=== PATIENT | male | born 1995 | race Caucasian/White ===

== ENCOUNTER 2019-03-24 11:07 | Emergency (ER) | payer SELFPAY ==
[2019-03-24 11:11] VITALS: BP 173/107; PULSE 65; RESP 16; TEMP 37; O2SAT 99; BMI 34.5
--- NOTE | 2019-03-24 11:22 | ED_ITS ---
Entered by Paulette Horner, acting as scribe for Maxwell Monsalve MD, [facility] [place] HPI - Dizziness General: Chief Complaint: Dizziness Stated Complaint: near syncope Time Seen by Provider: 03/24/19 11:20 Source: patient and RN notes reviewed Mode of arrival: ambulatory Limitations: no limitations History of Present Illness: HPI Narrative: 23 yo male presents to ED with complaints of dizziness. The patient states his head began spinning and stuff at work . He said he woke with a severe diffuse headache and nausea associated with headache. 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 He said when he turns his head or stands up the dizziness is worse. He said it is not constant. The patient said he first woke at 0630 and was fine; he went back to sleep and woke again at 0730 with the headache present. He dad stated the patient was here last year with cardiac issues (A-Fib). MD elicited complaint: dizziness, lightheadedness and vertigo Pertinent past history: other (A-Fib) Onset (ago): hour(s) (4 (0730)) Timing: sudden onset Severity: moderate Description: room spinning and off-balance History of similar symptoms: No Exacerbating factors: movement/ambulation and exertion Relieving factors: remaining still, lying down and keeping eyes closed Associated symptoms: Reports chest pain; Denies chills, palpitations or vomiting Associated neuro symptoms: Reports difficulty speaking and facial numbness (jaw); Deny numbness in extremities Stroke scale total: 0 Review of Systems General: Reports: 10 or more systems reviewed and unremarkable except in HPI and below Const: Denies: fever, chills or body aches Eyes: Reports: blind spots; Denies: change in vision or blurry vision ENMT: Denies: throat pain, enlarged tonsils, painful swallowing, hoarseness, mouth pain or swelling of lips/tongue Card: Reports: chest pain; Denies: palpitations, irregular heart rhythm, edema or swelling of feet/ankles Resp: Denies: shortness of breath, productive cough or non-productive cough GI: Denies: abdominal pain or vomiting : Denies: flank pain, painful urination, urinary frequency, urinary urgency or urinary hesitancy Musc: Denies: neck pain, back pain or extremity swelling Skin/Breast: Denies: rash, itching or redness Neuro: Denies: numbness in extremities or weakness in extremities Endo: Denies: excessive urination, excessive thirst or tired all the time PFSH ED PFSH: Social History Smoking and tobacco status: never smoked Physical Exam Const: COMMON NORMALS: no apparent distress, average body habitus, oriented x3, no limitations, healthy appearing, alert and well nourished HENMT: COMMON NORMALS: normocephalic, head/scalp atraumatic and moist oral mucous membranes HEAD & SCALP: normocephalic and atraumatic Eye: COMMON NORMALS: PERRL, EOMs intact bilaterally, conjunctivae normal and no scleral icterus CONJUNCTIVA: Yes conjunctivae normal PUPIL: Yes PERRL Neck/C-Spine: COMMON NORMALS: full ROM, supple, no meningeal signs, no JVD and no carotid bruits Chest: COMMONS NORMALS: inspection of chest normal and palpation of chest normal Resp: COMMON NORMALS: normal respiratory effort, no retractions, no use of accessory muscles, clear to auscultation bilaterally and percussion normal AUSCULTATION: clear to auscultation bilaterally PERCUSSION: percussion normal Cardio: COMMON NORMALS: no JVD, regular rate, regular rhythm, S1 normal heart sound, S2 normal heart sound, no gallops, no clicks, no murmurs, no rub and peripheral pulses 2+ throughout RATE: regular rate RHYTHM: regular rhythm HEART SOUNDS: S1 normal and S2 normal PERIPHERAL PULSES: pulses 2+ throughout GI: COMMON NORMALS: normal to inspection, nondistended, normoactive bowel sounds, soft to palpation, non-tender, no hepatosplenomegaly, no masses and no bruits PALPATION: Yes soft and Yes no hepatosplenomegaly : COMMON NORMALS: Yes no CVA tenderness BLADDER/KIDNEY EXAM: Yes no CVA tenderness Back/Pelvis: COMMON NORMALS: no CVA tenderness Extremity: COMMON NORMALS: normal to inspection, full ROM, normal capillary refill, no calf tenderness and no pedal edema Neuro: COMMON NORMALS: oriented x3 SENSORIUM/ORIENTATION: Yes alert MENINGEAL SIGNS: Yes no meningeal signs OTHER: no nystagmus. NIH 0 Skin: COMMON NORMALS: no rashes or lesions noted, no wounds, skin turgor normal, no jaundice, no petechiae and no mottling GENERAL SKIN EXAM: no rashes or lesions noted and turgor normal Course Reevaluation(s): Reevaluation #1: Patient feels much better. Vertigo has basically resolved. Meclizine was effective. He is ready to be discharged home. Time: 14:30 Vital Signs: Vital signs: Vital Signs Temperature 98.6 F 03/24/19 11:11 Pulse Rate 68 03/24/19 14:55 Respiratory Rate 22 H 03/24/19 14:55 Blood Pressure 126/57 03/24/19 14:55 Pulse Oximetry 98 03/24/19 14:55 MDM - Dizziness MDM Narrative: Medical decision making narrative: 23-year-old gentleman who presents to the emergency department with symptoms consistent with vertigo. He obtain much improvement following meclizine. Labs and imaging unremarkable. He is discharged home with as needed meclizine. If symptoms persist or recur he may need to follow-up with an ENT provider for further evaluation. Patient voiced understanding and is in agreement with the plan. Lab Data: Labs: Lab Results 03/24/19 03/24/19 Range/Units 11:49 11:49 WBC 6.0 (4.0-10.0) 10^3/ uL RBC 4.99 (4.1-5.3) 10^6/u L Hgb 13.9 (11.7-16.6) g/dL Hct 42.4 (42.0-52.0) % MCV 85.0 (80-94) fL MCH 27.9 L (28.0-34.0) pg MCHC 32.8 (30.0-36.0) g/dL RDW 12.4 (12.1-15.1) % Plt Count 218 (130-400) 10^3/c mm MPV 11.2 H (7.4-10.4) fL Neut % (Auto) 62.8 % Lymph % (Auto) 28.1 % Webb % (Auto) 6.7 % Eos % (Auto) 1.7 % Baso % (Auto) 0.5 % Neut # (Auto) 3.7 (1.8-7.7) 10^3/u L Lymph # (Auto) 1.7 (0.8-4.8) 10^3/u L Webb # (Auto) 0.4 (0.2-0.9) 10^3/u L Eos # (Auto) 0.1 (0.0-0.8) 10^3/u L Baso # (Auto) 0.0 (0.0-0.1) 10^3/u L Nucleated RBC % (a uto) 0 % Nucleated RBCs # 0.0 /100WBC Sodium 140 (136-145) mmol/L Potassium 4.3 (3.5-5.1) mmol/L Chloride 104 (98-107) mmol/L Carbon Dioxide 24 (22-29) mmol/L Anion Gap 16.3 (5-19) BUN 16 (6-20) mg/dL Creatinine 0.8 (0.7-1.2) mg/dL GFR Calculation 120.9 (90-130) mL/min Glucose 95 (65-115) mg/dL Calcium 10.0 (8.5-10.5) mg/dL Total Bilirubin 0.4 (0.15-1.2) mg/dL AST 19 (0-40) U/L ALT 25 (0-41) U/L Alkaline Phosphata se 61 (40-130) IU/L Total Protein 7.3 (6.6-8.7) g/dL Albumin 4.7 (3.5-5.2) g/dL Globulin 2.6 (1.3-4.6) g/dL Imaging Data^: CXR: Radiologist's impression: [address] [address] XRay Report Signed Patient: Steven Esparza #: [id number] : 1995Acct#:[id number] Age/Sex: Date: 03/24/19 Loc: ERRoom/Bed: Attending Dr: Ordering Provider/Ordering MD: Maxwell Monsalve MD, [facility] [place] Date of Service: 03/24/19 Procedure(s): XR chest 1V portable [id number] Accession Number(s): [id number] Report Number: [id number] WS: [id number] XR chest 1V portable [id number] REASON FOR EXAM: dizziness FINDINGS: Borderline cardiomegaly. The lung motley are well-aerated no pneumonia, congestive heart failure, pulmonary edema, or mass effect. No osseous abnormalities. The hilum and apices are normal. XR/XR chest 1V portable [id number] IMPRESSION: Borderline cardiomegaly Dictated By:Luther Mcghee DO Signed By:Luther Mcghee DOSigned Date/Time:03/24/19 1208 DD/ CT Head: Radiologist's impression: [facility] [address] [place] [address] CT Scan Report Signed Patient: Steven Esparza #: [id number] : 1995Acct#:[id number] Age/Sex: Date: 03/24/19 Loc: ERRoom/Bed: Attending Dr: Ordering Provider/Ordering MD: Maxwell Monsalve MD, [facility] [place] Date of Service: 03/24/19 Procedure(s): CT head wo con* [id number] Accession Number(s): [id number] Report Number: [id number] PROCEDURE INFORMATION: Exam: CT Head Without Contrast Exam date and time: 03/24/2019 12:05 PM Age: 23 years old Clinical indication: Dizziness; Additional info: Worst headache of his life TECHNIQUE: Imaging protocol: Computed tomography of the head without contrast. Total DLP: 887.71 mGy-cm Radiation optimization: All CT scans at this facility use at least one of these dose optimization techniques: automated exposure control; mA and/or kV adjustment per patient size (includes targeted exams where dose is matched to clinical indication); or iterative reconstruction. COMPARISON: No relevant prior studies available. FINDINGS: Brain: Normal. No hemorrhage. Unremarkable white matter. No mass effect. Ventricles: Normal. No ventriculomegaly. Bones/joints: Unremarkable. No acute fracture. Sinuses: Visualized sinuses are unremarkable. No fluid levels. Mastoid air cells: Visualized mastoid air cells are well aerated. Soft tissues: Unremarkable. CT/CT head wo con* [id number] IMPRESSION: No acute intracranial abnormality. Radiation Dose CTDIVOL = (mGy): DLP = 887.71 (mGy-cm) Dictated By:Stefano Bull MD Signed By:Stefano Bull MDSigned Date/Time:03/24/19 1354 DD/ EKG Data^: EKG 1: Attestation: I personally reviewed and interpreted this EKG as follows: EKG interpretation date: 03/24/19 EKG interpretation time: 11:20 Prior EKG tracings: not available for review Interpretation: Normal sinus rhythm. Heart rate 61. Normal axis. No ST changes. Discharge Plan Discharge Patient Disposition: Home, Self-Care Clinical Impression: Vertigo Condition: Stable Prescriptions: New meclizine 25 mg tablet 25 mg PO TID PRN (Reason: dizziness) Qty: 30 RF: 0 Continued ibuprofen 200 mg Tablet 400 mg PO PRN RF: 0 Matrix X Multivitamin 2 tab PO TID RF: 0 Discharge Orders: Discharge Order (Routine); Ordered 03/24/19 Ordered By: Maxwell Monsalve Referrals: Matthwe Canchola MD [Family Provider] - 1-3 days Patient Instructions: Vertigo (ED) Activity Restrictions/Additional Instructions: Return for any new or worsening symptoms. Take the medication as needed for vertigo. If your symptoms persist, you may need to follow up with an ENT surgeon. Drink plenty of fluids to keep well hydrated. Discharge Date/Time: 03/24/19 14:56 Coding Level of Care Code ED Manager Fitness for Chg Fwd Exam Comprehensive The documentation recorded by the Evens lama Valerie R, accurately reflects the service I personally performed and the decisions made by Bello braxton Adegoke I, MD, [facility] Mar 24, 2019 11:07
--- NOTE | 2019-03-24 11:40 | CTR_ITS ---
PROCEDURE INFORMATION: Exam: CT Head Without Contrast Exam date and time: 03/24/2019 12:05 PM Age: 23 years old Clinical indication: Dizziness; Additional info: Worst headache of his life TECHNIQUE: Imaging protocol: Computed tomography of the head without contrast. Total DLP: 887.71 mGy-cm Radiation optimization: All CT scans at this facility use at least one of these dose optimization techniques: automated exposure control; mA and/or kV adjustment per patient size (includes targeted exams where dose is matched to clinical indication); or iterative reconstruction. COMPARISON: No relevant prior studies available. FINDINGS: Brain: Normal. No hemorrhage. Unremarkable white matter. No mass effect. Ventricles: Normal. No ventriculomegaly. Bones/joints: Unremarkable. No acute fracture. Sinuses: Visualized sinuses are unremarkable. No fluid levels. Mastoid air cells: Visualized mastoid air cells are well aerated. Soft tissues: Unremarkable. CT/CT head wo con* [id number] IMPRESSION: No acute intracranial abnormality. Radiation Dose CTDIVOL = (mGy): DLP = 887.71 (mGy-cm)
--- NOTE | 2019-03-24 11:40 | XR_ITS ---
WS: [id number] XR chest 1V portable [id number] REASON FOR EXAM: dizziness FINDINGS: Borderline cardiomegaly. The lung motley are well-aerated no pneumonia, congestive heart failure, pulmonary edema, or mass eff ect. No osseous abnormalities. The hilum and apices are normal. XR/XR chest 1V portable [id number] IMPRESSION: Borderline cardiomegaly
--- NOTE | 2019-03-24 11:42 | ECG_ITS ---
Measurements Intervals [place] Rate: 61 P: 23 GA: 180 QRS: 1 QRSD: 106 T: 7 QT: 326 QTc: 330 SINUS RHYTHM Compared to ECG 03/28/2018 21:26:26 Atrial fibrillation no longer present Electronically Signed On 03-24-2019 14:26:34 SNOW GROOMER by Leighton Lea M.D. [email or web address]
[2019-03-24 12:00] LABS: Basophils % 0.5 %; Eosinophils # 0.1 10^3/uL (0.0-0.8); Eosinophils % 1.7 %; Hematocrit 42.4 % (42.0-52.0); Hemoglobin 13.9 g/dL (11.7-16.6); Lymphocytes # 1.7 10^3/uL (0.8-4.8); Lymphocytes % 28.1 %; Mean Corpuscular HGB Conc 32.8 g/dL (30.0-36.0); Mean Corpuscular Hemoglobin 27.9 pg (28.0-34.0); Mean Platelet Volume 11.2 fL (7.4-10.4); Monocytes # 0.4 10^3/uL (0.2-0.9); Monocytes % 6.7 %; Neutrophils # 3.7 10^3/uL (1.8-7.7); Neutrophils % 62.8 %; Nucleated Red Blood Cells % 0 %; Platelet Count 218 10^3/cmm (130-400); Red Blood Count 4.99 10^6/uL (4.1-5.3); Red Cell Distribution Width 12.4 % (12.1-15.1)
--- NOTE | 2019-03-24 12:01 | PC.NURSE ---
radiology in room
[2019-03-24 12:02] VITALS: BP 123/61; PULSE 69; RESP 20; O2SAT 100
[2019-03-24 12:30] LABS: Alanine Aminotransferase 25 U/L (0-41); Albumin Level 4.7 g/dL (3.5-5.2); Alkaline Phosphatase 61 IU/L (40-130); Anion Gap 16.3 (5-19); Aspartate Amino Transferase 19 U/L (0-40); Blood Urea Nitrogen 16 mg/dL (6-20); Carbon Dioxide 24 mmol/L (22-29); Chloride 104 mmol/L (98-107); Globulin 2.6 g/dL (1.3-4.6); Glomerular Filtration Rate 120.9 mL/min (90-130); Glucose 95 mg/dL (65-115); Potassium 4.3 mmol/L (3.5-5.1); Sodium 140 mmol/L (136-145); Total Bilirubin 0.4 mg/dL (0.15-1.2); Total Protein 7.3 g/dL (6.6-8.7)
[2019-03-24 12:58] VITALS: BP 124/65; BP 125/74; BP 140/62; PULSE 64; PULSE 71; PULSE 78
[2019-03-24] MEDS: meclizine 25 mg tablet 50 MG PO (13:44)
[2019-03-24 14:55] VITALS: BP 126/57; PULSE 68; RESP 22; O2SAT 98
== END 2019-03-24 14:56 | disposition home or self-care (01) ==
PROVIDERS: Emergency Provider Family Medicine; Family Provider Family Medicine
DX: R42 Dizziness and giddiness (principal); I48.91 Unspecified atrial fibrillation
CPT/HCPCS: 36415; 70450; 71045; 80053; 85025; 93005; 99282; 99283; J8597

== ENCOUNTER → 2020-09-24 08:26 | Outpatient (BNVA) | payer OTHER, SELFPAY | PROVIDERS: Family Provider Family Medicine; Visit Provider Nurse Practitioner Family | DX: Z20.822 Contact with and (suspected) exposure to COVID-19 (principal) | CPT/HCPCS: 87635 ==

== ENCOUNTER → 2020-09-25 09:43 | Outpatient (BNVA) | payer OTHER, SELFPAY | PROVIDERS: Family Provider Family Medicine; Visit Provider Nurse Practitioner Family | DX: Z20.822 Contact with and (suspected) exposure to COVID-19 (principal) | CPT/HCPCS: 87426 ==

== ENCOUNTER 2021-10-13 08:00 | Outpatient (CLI) | payer BC, SELFPAY | END 2021-10-13 20:01 | disposition home or self-care (01) | LOC: SLEEP 10-22 10:52 | PROVIDERS: Family Provider Family Medicine; Visit Provider Family Medicine | DX: G47.10 Hypersomnia, unspecified (principal) | CPT/HCPCS: G0399 ==

== ENCOUNTER 2022-05-12 00:48 | Emergency (ER) | payer SELFPAY ==
[2022-05-12] VITALS (8 sets, daily range): BP systolic 120–186; BP diastolic 64–124; PULSE 64–79; RESP 16–18; TEMP 36.7; O2SAT 95–98; BMI 38.0
--- NOTE | 2022-05-12 01:02 | CTR_ITS ---
PROCEDURE INFORMATION: Exam: CT Head Without Contrast Exam date and time: 05/12/2022 1:29 AM Age: 26 years old Clinical indication: Pain; Headache; Patient HX: C/O occipital PROCTOR with hypertension. BP of 225/153 initial recording. TECHNIQUE: Imaging protocol: Computed tomography of the head without contrast. Radiation optimization: All CT scans at this facility use at least one of these dose optimization techniques: automated exposure control; mA and/or kV adjustment per patient size (includes targeted exams where dose is matched to clinical indication); or iterative reconstruction. REPORTING DATA: Count of CT and Cardiac NM exams in prior 12 months: This patient has received 0 known CTs and 0 known cardiac nuclear medicine studies in the 12 months prior to the current study. COMPARISON: CT head wo con* [id number] 03/24/2019 12:19 PM RADIATION DOSE METRICS: Total DLP (mGy-cm): 1033.98 FINDINGS: Brain: No acute intracranial hemorrhage or mass effect. No definite acute infarct by CT. Cerebral ventricles: Ventricle size is normal for age. Paranasal sinuses: Included paranasal sinuses are essentially clear. Mastoid air cells: No significant acute finding. Bones/joints: No definite acute skull fracture. Soft tissues: No significant acute finding. CT/CT head wo con* [id number] IMPRESSION: 1. No acute intracranial hemorrhage or mass effect. 2. Other findings discussed above.
--- NOTE | 2022-05-12 01:03 | W.ED.HA ---
HPI - Headache General: Chief Complaint: Headache Stated Complaint: BP high, PROCTOR Time Seen by Provider: 05/12/22 00:49 Source: patient Mode of arrival: ambulatory Limitations: no limitations History of Present Illness: 26-year-old male has a history of hypertension he states he was on metoprolol years ago but has not taken it in years because of the way it made him fell. States over the last 6 days he has had a progressive headache he states it began gradually is currently a 6 out of 10 denies it being the worst headache of his life he is hypertensive denied at home in the 200s he is hypertensive here as well he denies any chest pain denies any fevers denies any injuries. Denies any worsening proving factors. Associated symptoms: Deny chest pain, fever(s), nausea, rash or vomiting Review of Systems Const: Denies: fever(s), chills, body aches or change in appetite Eyes: Denies: blurry vision or eye discomfort ENMT: Denies: throat pain or dental pain Card: Denies: chest pain Resp: Denies: dyspnea GI: Denies: abdominal pain, nausea, vomiting or diarrhea : Denies: dysuria Musc: Denies: neck pain or back pain Skin/Breast: Denies: rash Neuro: Reports: headache(s) Psych: Denies: depression Tom/Lymph: Denies: easy bruising All/Imm: Denies: urticaria PFSH ED PFSH: Medical History (Updated 05/12/22 @ 03:33 by Pravin Bedolla MD) Hypertension Social History Smoking and tobacco status: never smoked Physical Exam Const: COMMON NORMALS: no acute distress, patient oriented x3 and healthy appearing HENMT: COMMON NORMALS: normocephalic and atraumatic HEAD & SCALP: normocephalic and atraumatic Eye: COMMON NORMALS: Equal, round and reactive pupils present and EOMs intact bilaterally PUPIL: Yes Equal, round and reactive pupils present Neck/C-Spine: COMMON NORMALS: full ROM and supple Chest: COMMONS NORMALS: normal inspection of the chest and normal palpation of entire chest wall Resp: COMMON NORMALS: normal respiratory effort, No retractions, No use of accessory muscles and clear to auscultation bilaterally AUSCULTATION: clear to auscultation bilaterally Cardio: COMMON NORMALS: regular rate, regular rhythm and No murmurs present (Cardio) RATE: regular rate RHYTHM: regular rhythm GI: COMMON NORMALS: Normal to inspection, nondistended, normoactive bowel sounds present, Soft to palpation, non-tender and no masses PALPATION: Yes Soft to palpation Extremity: COMMON NORMALS: normal to inspection and full ROM Neuro: COMMON NORMALS: patient oriented x3, moves all extremities and no focal motor deficits Psych: COMMON NORMALS: mental status grossly normal, Normal thought process present and cooperative THOUGHT PROCESS: Normal thought process present Skin: COMMON NORMALS: no rashes or lesions noted and no wounds GENERAL SKIN EXAM: no rashes or lesions noted Course Vital Signs: Vital signs: Vital Signs Temperature 98.1 F 05/12/22 00:54 Pulse Rate 76 05/12/22 03:49 Respiratory Rate 16 05/12/22 03:49 Blood Pressure 120/64 05/12/22 03:49 Pulse Oximetry 97 05/12/22 03:49 Oxygen Delivery Me thod 05/12/22 03:49 MDM - Headache Medical Decision Making Patient presents here with headache along with hypertension his headache here is resolved that is not the worst headache of his life his head CT is normal blood works normal his blood pressure here is improved to Will prescribe him Norvasc for home he is to follow-up with PCP and return if worsening. Lab Data 05/12/22 01:07 05/12/22 01:07 Laboratory Results WBC 7.5 10^3/uL (4.0-10.0) 05/12/22 01:07 RBC 5.21 10^6/uL (4.1-5.3) 05/12/22 01:07 Hgb 15.1 g/dL (11.7-16.6) 05/12/22 01:07 Hct 46.4 % (42.0-52.0) 05/12/22 01:07 MCV 89.1 fl (80-94) 05/12/22 01:07 MCH 29.0 pg (28.0-34.0) 05/12/22 01:07 MCHC 32.5 g/dL (30.0-36.0) 05/12/22 01:07 RDW 12.2 % (12.1-15.1) 05/12/22 01:07 Plt Count 228 10^3/cmm (130-400) 05/12/22 01:07 MPV 10.9 fL (7.4-10.4) H 05/12/22 01:07 Neut % (Auto) 61.3 % 05/12/22 01:07 Lymph % (Auto) 30.0 % 05/12/22 01:07 [place] % (Auto) 5.7 % 05/12/22 01:07 Eos % (Auto) 1.9 % 05/12/22 01:07 Baso % (Auto) 0.4 % 05/12/22 01:07 Neut # (Auto) 4.60 10^3/uL (1.8-7.7) 05/12/22 01:07 Lymph # (Auto) 2.3 10^3/uL (0.8-4.8) 05/12/22 01:07 [place] # (Auto) 0.4 10^3/uL (0.2-0.9) 05/12/22 01:07 Eos # (Auto) 0.1 10^3/uL (0.0-0.8) 05/12/22 01:07 Baso # (Auto) 0.0 10^3/uL (0.0-0.1) 05/12/22 01:07 Nucleated RBC % (auto) 0 % 05/12/22 01:07 Nucleated RBCs # 0.0 /100WBC 05/12/22 01:07 Sodium 139 mmol/L (136-145) 05/12/22 01:07 Potassium 4.0 mmol/L (3.5-5.1) 05/12/22 01:07 Chloride 105 mmol/L (98-107) 05/12/22 01:07 Carbon Dioxide 24 mmol/L (22-29) 05/12/22 01:07 Anion Gap 14.0 (5-19) 05/12/22 01:07 BUN 12 mg/dL (6-20) 05/12/22 01:07 Creatinine 0.8 mg/dL (0.7-1.2) 05/12/22 01:07 GFR Calculation 117.8 mL/min (90-130) 05/12/22 01:07 Glucose 91 mg/dL (65-115) 05/12/22 01:07 Calculated Osmolality 287 mOsm/kg (285-295) 05/12/22 01:07 Calcium 8.8 mg/dL (8.5-10.5) 05/12/22 01:07 Total Bilirubin 0.3 mg/dL (0.15-1.2) 05/12/22 01:07 AST 29 U/L (0-40) 05/12/22 01:07 ALT 52 U/L (0-41) H 05/12/22 01:07 Alkaline Phosphatase 84 U/L (40-130) 05/12/22 01:07 Total Protein 7.1 g/dL (6.6-8.7) 05/12/22 01:07 Albumin 4.1 g/dL (3.5-5.2) 05/12/22 01:07 Globulin 3.0 g/dL (1.3-4.6) 05/12/22 01:07 EKG Data EKG 1: I personally reviewed and interpreted this EKG as follows: EKG interpretation date: 05/12/22 EKG interpretation time: 01:04 Interpretation: nsr hr [address] or t wave abnormalities qrs 125 qtc 349 Discharge Plan Discharge Patient Disposition: Home Clinical Impression: Hypertension, Headache Condition: Stable Prescriptions: New Norvasc 10 mg tablet 10 mg PO DAILY Qty: 60 0RF No Action Matrix X Multivitamin 2 tab PO TID Discharge Orders: Discharge ED (Routine); Ordered 05/12/22 Ordered By: Pravin Bedolla Referrals: Matthew Canchola MD [Primary Care Provider] - 1-3 days Discharge Diet: Advance as tolerated Discharge Activity: Resume usual activity Patient Instructions: Hypertension (ED), General Headache (ED) Coding Level of Care Code ED Cutting And Boning Supervisor for Chg Matt
--- NOTE | 2022-05-12 01:04 | ECG_ITS ---
[facility] Test Date: 2022-05-12 Pat Name: Steven Esparza Department: Room: Gender: Male Independent Sales Representative: : 1995 Requested By: Pravin Bedolla Order Number: [id number] Kym MD: Indio Meyers M.D. Measurements Intervals [place] Rate: 64 P: 80 WI: 172 QRS: -13 QRSD: 125 T: -1 QT: 340 QTc: 352 Interpretive Statements SINUS RHYTHM WITH SINUS ARRHYTHMIA MODERATE INTRAVENTRICULAR CONDUCTION DELAY [110+ ms QRS DURATION] Compared to ECG 03/24/2019 11:20:09 Intraventricular conduction delay now present Electronically Signed On 05-13-2022 0:08:20 CDT by Indio Meyers M.D. [id number]
[2022-05-12] MEDS: diphenhydrAMINE 50 mg/mL SDV 1mL IVP (01:11)
[2022-05-12 01:12] LABS: Basophils % 0.4 %; Eosinophils # 0.1 10^3/uL (0.0-0.8); Eosinophils % 1.9 %; Hematocrit 46.4 % (42.0-52.0); Hemoglobin 15.1 g/dL (11.7-16.6); Lymphocytes # 2.3 10^3/uL (0.8-4.8); Mean Corpuscular HGB Conc 32.5 g/dL (30.0-36.0); Mean Corpuscular Volume 89.1 fl (80-94); Mean Platelet Volume 10.9 fL (7.4-10.4); Monocytes # 0.4 10^3/uL (0.2-0.9); Monocytes % 5.7 %; Neutrophils % 61.3 %; Nucleated Red Blood Cells % 0 %; Platelet Count 228 10^3/cmm (130-400); Red Blood Count 5.21 10^6/uL (4.1-5.3); Red Cell Distribution Width 12.2 % (12.1-15.1); White Blood Count 7.5 10^3/uL (4.0-10.0)
[2022-05-12] MEDS: metoclopramide 5 mg/mL SDV 2 mL 10 MG IVP (01:13)
[2022-05-12] MEDS: hyDRALAzine 20 mg/mL INJ 1 mL 10 MG IVP (01:15)
[2022-05-12 01:33] LABS: Alanine Aminotransferase 52 U/L (0-41); Albumin Level 4.1 g/dL (3.5-5.2); Alkaline Phosphatase 84 U/L (40-130); Aspartate Amino Transferase 29 U/L (0-40); Blood Urea Nitrogen 12 mg/dL (6-20); Calcium 8.8 mg/dL (8.5-10.5); Carbon Dioxide 24 mmol/L (22-29); Chloride 105 mmol/L (98-107); Glomerular Filtration Rate 117.8 mL/min (90-130); Glucose 91 mg/dL (65-115); Osmolality Calculated 287 mOsm/kg (285-295); Sodium 139 mmol/L (136-145); Total Bilirubin 0.3 mg/dL (0.15-1.2); Total Protein 7.1 g/dL (6.6-8.7)
== END 2022-05-12 04:48 | disposition home or self-care (01) ==
PROVIDERS: Emergency Provider Emergency Medicine; PCP Family Medicine
DX: I10 Essential (primary) hypertension (principal); R51.9 Headache, unspecified
CPT/HCPCS: 70450; 80053; 85025; 93005; 96374; 96375; 99285; J0360; J1200; J2765

== ENCOUNTER 2023-01-15 07:45 | Emergency (ER) | payer SELFPAY ==
[2023-01-15 07:53] VITALS: BP 136/82; PULSE 58; RESP 18; TEMP 36.7; O2SAT 96; BMI 39.7
== END 2023-01-15 08:16 | disposition left against medical advice (07) ==
PROVIDERS: Emergency Provider Family Medicine; PCP Family Medicine
DX: Z53.21 Procedure and treatment not carried out due to patient leaving prior to being seen by health care provider (principal)